=== PATIENT | female | born 1945 | race Caucasian/White ===

== ENCOUNTER → 2017-01-23 | Outpatient (CLI) | payer MEDICARE, OTHER ==
--- NOTE | ~2017-01-23 | PUL ---
PATIENT'S NAME: BARRY FREEMAN [facility] AGE: 71 Y [address] ROOM: [place] [id number] LOCATION: [facility] ADMIT DATE: 01/23/2017 Pulmonary DISCHARGE DATE: FAMILY PHYSICIAN: Santosh Queen MD ATTENDING PHYSICIAN: JEFF COLON NAME OF PROCEDURE: Pulmonary Function Test DATE OF PROCEDURE: January 23, 2017 TECH: [place]ri[place], STE[employer]ER G[employer] CANDY REASON FOR EXAM: Pulmonary nodule RESULTS: 1. FVC was 2.52 liters which is 83% of predicted and normal, FEV1 was 0.99 liters which is 43% of predicted and low, and FEV1/FVC was 39% and low. The flow volume curve revealed significant airflow limitation. After bronchodilator administration FVC increased to 2.6 liters which is a 3% increase and FEV1 decreased to 0.98 liters. FEV1/FVC was 38%. 2. DLCO was 6 with an adjusted DLCO of 5.6 which is 31% of predicted and low. 3. Total lung capacity was 5.03 liters which is 104% of predicted and normal, and residual volume was 2.5 liters which is 129% of predicted and normal. PHYSICIAN INTERPRETATION: The patient has severe airflow limitation without a significant bronchodilator response. Her diffusion capacity is severely low. There is no evidence of restrictive lung disease. MD DEBBY CRUZ/ugo /[id number] dtt: 01/25/17 1228 DARLENE RADU F dtd: 01/24/17 0849
== END | disposition disaster alternative care site (69) ==
LOC: GRTH 01-09 13:00 → GRAD 01-21 09:00 → GRTH 08:59
DX: J44.9 Chronic obstructive pulmonary disease, unspecified (principal); R91.1 Solitary pulmonary nodule